=== PATIENT | female | born 1960 | race Caucasian/White ===

== ENCOUNTER 2017-03-08 23:12 | Emergency (ER) | payer OTHER ==
[~2017-03-08] VITALS: Ht 160 cm; Wt 78.0 kg
[2017-03-09] MEDS ORDERED: SODIUM CHLORIDE 0.9% 10ML VIAL ONE (02:00)
[2017-03-09] MEDS ORDERED: IOHEXOL-300 100 ML BOTTLE ONE (02:00)
[2017-03-09] MEDS ORDERED: SODIUM CHLORIDE 0.9% 1,000 ML IV ONE (02:21)
[2017-03-09] MEDS ORDERED: MORPHINE SULFATE 4 MG/ML CPJ (NOT FOR IM USE) IV STA (02:21)
[2017-03-09] MEDS ORDERED: ONDANSETRON HCL 4MG/2ML VIAL IV STA (02:21)
[2017-03-09 03:01] LABS: BASOPHILS % 0.7 % (0.0-2.0); EOSINOPHILS % 2.3 % (0.0-5.0); HEMOGLOBIN. 12.8 g/dL (12.0-16.0); LYMPHOCYTES % 30.1 % (20.0-50.0); MEAN CORPUSCULAR HEMOGLOBIN 29.6 pg (28.0-32.0); MEAN CORPUSCULAR VOLUME 85.9 fL (81.0-99.0); MEAN PLATELET VOLUME 8.4 fl (7.4-10.4); MONOCYTES % 8.9 % (2.0-8.0); PLATELET 297 x1000/uL (130-400); RED BLOOD CELL COUNT 4.31 mill/uL (4.2-5.4); RED CELL DISTRIBUTION WIDTH 13.2 % (11.6-14.6)
[2017-03-09 03:09] LABS: CARBON DIOXIDE 27 mEq/L (21-32); CHLORIDE 103 mEq/L (98-107)
[2017-03-09 05:33] VITALS: BP 144/67
== END 2017-03-09 05:55 | disposition home or self-care (01) ==
LOC: ER 23:12
DX: R07.89 Other chest pain (principal); M54.5 Low back pain; R05 Cough; I10 Essential (primary) hypertension; E78.00 Pure hypercholesterolemia, unspecified; E11.9 Type 2 diabetes mellitus without complications
CPT/HCPCS: 36415; 71010; 72100; 74177; 80048; 82962; 85025; 96361; 96374; 96375; 99285; A4216; J2270; J2405; J7030; Q9967; Z7610

== ENCOUNTER → 2021-04-14 | Day surgery (SDC) | payer MEDICARE, MEDICAID ==
[~2021-04-14] MED LIST: ACETAMINOPHEN 325MG TABLET PO PRN; AMI2 PO; ATOR20TA65 PO; BENA40TA9 PO; DEXT 5%/0.45% NACL 500ML 500 ML IV ONE; DIXL10 PO; EMPA10TA PO; FENTANYL CITRATE/PF 50MCG/ML 2ML VIAL ONE; INSU100I28 SQ; IODIXANOL 320MG/ML 100 ML BOTTLE IV ONE; LIDOCAINE HCL 1% 20ML VIAL (Pyxis) INJ ONE; METF-416 PO; MIDAZOLAM HCL 2 MG/2 ML VIAL ONE; ONDANSETRON HCL 4MG/2ML INJ IV PRN; SPIR25TA6 PO
== END | disposition home or self-care (01) ==
LOC: CCL 08:09
PROVIDERS: ATTEND Specialist
DX: I73.9 Peripheral vascular disease, unspecified (principal); E11.51 Type 2 diabetes mellitus with diabetic peripheral angiopathy without gangrene; I11.9 Hypertensive heart disease without heart failure; I48.91 Unspecified atrial fibrillation; E78.5 Hyperlipidemia, unspecified; Z79.01 Long term (current) use of anticoagulants; Z79.84 Long term (current) use of oral hypoglycemic drugs; Z79.899 Other long term (current) drug therapy; Z98.890 Other specified postprocedural states
CPT/HCPCS: 36246; 75710; 82962; 93005; C1760; C1769; C1893; J1644; J2250; J3010; J3490; Q9967